=== PATIENT | female | born 1960 | race Caucasian/White ===

== ENCOUNTER 2017-04-16 09:37 | Day surgery (SDC) | payer OTHER ==
[~2017-04-16] VITALS: Ht 144.8 cm; Wt 48.5 kg
[~2017-04-16 09:37] MED LIST: CHILDREN'S160 MG/58 PO; NORVASC5 MG PO; PRINIVIL20 MG PO; XANAX0.5 MG PO; ZETIA10 MG PO
[2017-04-16 10:25] VITALS: BP 111/67
[2017-04-16 15:06] VITALS: BP 132/67
[2017-04-16 15:36] VITALS: BP 146/63
== END 2017-04-16 15:42 | disposition home or self-care (01) ==
LOC: SDC 09:37
DX: H33.012 Retinal detachment with single break, left eye (principal); H33.42 Traction detachment of retina, left eye; I10 Essential (primary) hypertension; E78.5 Hyperlipidemia, unspecified; K21.9 Gastro-esophageal reflux disease without esophagitis; F41.9 Anxiety disorder, unspecified; Z87.891 Personal history of nicotine dependence; Z88.0 Allergy status to penicillin
CPT/HCPCS: J0690; J1100; J2405; J2795; J3010; J3300

== ENCOUNTER 2017-09-17 10:11 | Day surgery (SDC) | payer OTHER ==
[~2017-09-17] VITALS: Ht 144.8 cm; Wt 50.4 kg
[2017-09-17 10:50] VITALS: BP 120/72
[2017-09-17 15:42] VITALS: BP 134/70
== END 2017-09-17 15:55 | disposition home or self-care (01) ==
LOC: SDC 10:11
DX: H35.372 Puckering of macula, left eye (principal); F41.1 Generalized anxiety disorder; I10 Essential (primary) hypertension; K21.9 Gastro-esophageal reflux disease without esophagitis; F17.200 Nicotine dependence, unspecified, uncomplicated; Z88.0 Allergy status to penicillin
CPT/HCPCS: J0690; J1100; J2250; J2405; J2795; J3010